=== PATIENT | female | born 1990 | race Caucasian/White ===

== ENCOUNTER 2018-09-24 04:30 | Emergency (ER) | payer MEDICAID ==
[~2018-09-24] VITALS: Ht 160 cm; Wt 54.4 kg
--- NOTE | 2018-09-24 05:42 | NUR ---
Dr. Sam at bedside for MSE.
[2018-09-24] MEDS ORDERED: ALBUTEROL SULFATE 2.5 MG/ 0.5 ML NEBU ONE (05:54)
[2018-09-24] MEDS ORDERED: IPRATROPIUM BROMIDE 0.5 MG/2.5 ML NEBU ONE (05:54)
[2018-09-24] MEDS ORDERED: ALBUTEROL SULFATE 2.5 MG/3 ML NEBU ONE (05:54)
[2018-09-24] MEDS ORDERED: predniSONE 20 MG TABLET ONE (05:55)
[2018-09-24] MEDS ORDERED: ALBUTEROL SULFATE 2.5 MG/3 ML NEBU NEB ONE (06:00)
[2018-09-24] MEDS ORDERED: predniSONE 10 MG TABLET PO ONE (06:00)
[2018-09-24] MEDS ORDERED: IPRATROPIUM BROMIDE 0.5 MG/2.5 ML NEBU NEB ONE (06:00)
[2018-09-24 06:11] LABS: CREATININE 0.6 mg/dL (0.6-1.3); POTASSIUM 3.4 mmol/L (3.5-5.1)
[2018-09-24 06:18] LABS: EOSINOPHILS # (AUTO) 0.1 K/uL (0.0-0.7); HEMATOCRIT 30.3 % (31.2-41.9); HEMOGLOBIN 9.1 g/dL (10.9-14.3); LYMPHOCYTES # (AUTO) 3.5 K/uL (20.0-40.0); MEAN CORPUSCULAR HEMOGLOBIN 18.6 uug (24.7-32.8); MEAN CORPUSCULAR HGB CONC 30 g/dL (32.3-35.6); MEAN CORPUSCULAR VOLUME 61.7 fL (75.5-95.3); MONOCYTES # (AUTO) 0.5 K/uL (2.0-10.0); NEUTROPHILS # (AUTO) 3.1 K/uL (1.8-8.9); PLATELET COUNT (AUTO) 504 K/uL (179-408); RED BLOOD CELL COUNT(AUTO) 4.91 MIL/uL (3.63-4.92); WHITE BLOOD COUNT (AUTO) 7.2 K/uL (3.8-11.8)
[2018-09-24 06:23] LABS: BILIRUBIN,DIRECT 0.1 mg/dL (0.0-0.2); BILIRUBIN,TOTAL 0.3 mg/dL (0.2-1.0); TOTAL PROTEIN, SERUM 7.6 g/dL (6.4-8.2)
[2018-09-24 06:47] LABS: EOSINOPHILS % (MANUAL) 1 % (0-8); LYMPHOCYTES % (MANUAL) 22 % (20-40); MONOCYTES % (MANUAL) 16 % (2-10); NEUTROPHILS % (MANUAL) 61 % (42-75)
--- NOTE | 2018-09-24 07:03 | NUR ---
Report given to Kera lee.
--- NOTE | 2018-09-24 07:20 | NUR ---
Patient discharged to home in stable conditon. Written and verbal after care instructions given. Patient verbalizes understanding of instructions.
[2018-09-24 07:21] VITALS: BP 112/70
== END 2018-09-24 07:21 | disposition home or self-care (01) ==
LOC: ER 04:32
DX: J45.909 Unspecified asthma, uncomplicated (principal); F17.200 Nicotine dependence, unspecified, uncomplicated; F12.10 Cannabis abuse, uncomplicated
CPT/HCPCS: 36415; 71045; 80048; 80076; 83880; 84484; 84702; 85025; 85379; 93005; 94644; 99285; J7512; 70030-TC; A4663; J3590

== ENCOUNTER 2019-07-18 23:19 | Emergency (ER) | payer MEDICAID ==
[~2019-07-18] VITALS: Ht 160 cm; Wt 54.4 kg
--- NOTE | 2019-07-18 23:50 | NUR ---
PATIENT WAS MSE BY DR MANCUSO IN ROOM 04B. PATIENT A & O X4.
[2019-07-19] MEDS ORDERED: HYDROCODONE/APAP 5-325MG TABLET PO ONE
[2019-07-19] MEDS ORDERED: IBUPROFEN 600 MG TABLET PO ONE
[2019-07-19] MEDS ORDERED: IBUPROFEN 600 MG TABLET ONE (00:01)
[2019-07-19] MEDS ORDERED: HYDROCODONE/APAP 5-325MG TABLET ONE (00:02)
--- NOTE | 2019-07-19 00:48 | NUR ---
PATIENT REFUSED BLOOD DRAW AND UNABLE TO GIVE URINE MULTIPLE ATTEMPTS DONE. DR JAMEE FOWLER.
--- NOTE | 2019-07-19 01:03 | NUR ---
Patient does not wish to proceed with medical care recommended by Dr. MANCUSO. Patient given information related to possible complications, up to and including , which could occur as a result of leaving the hospital at this time. Patient verbalizes understanding of risks involved due to leaving against medical advice. Patient has signed AMA form.
== END 2019-07-19 01:06 | disposition left against medical advice (07) ==
LOC: ER 23:22
DX: S00.03XA Contusion of scalp, initial encounter (principal); S19.9XXA Unspecified injury of neck, initial encounter; S39.92XA Unspecified injury of lower back, initial encounter; F12.10 Cannabis abuse, uncomplicated; F17.290 Nicotine dependence, other tobacco product, uncomplicated; V49.9XXA Car occupant (driver) (passenger) injured in unspecified traffic accident, initial encounter; Y93.89 Activity, other specified; Y92.89 Other specified places as the place of occurrence of the external cause; Y99.8 Other external cause status
CPT/HCPCS: A4663